=== PATIENT | female | born 1990 | race African-American/Black ===

== ENCOUNTER 2017-05-19 11:37 | Emergency (ER) | payer OTHER ==
[~2017-05-19] VITALS: Ht 154.9 cm; Wt 60.8 kg
[~2017-05-19 11:37] MED LIST: CIPROFLOXACIN500 M1 PO; FLAGYL500 MG PO; NOHOMEMEDICATIONS; PRENATAL
[2017-05-19 12:26] LABS: URINE BLOOD NEGATIVE (Negative); URINE CLARITY CLEAR; URINE COLOR YELLOW; URINE GLUCOSE-RANDOM* NEGATIVE (Negative); URINE KETONES TRACE (Negative); URINE LEUKOCYTES-REFLEX NEGATIVE (Negative); URINE NITRITE-REFLEX NEGATIVE (Negative); URINE PROTEIN (DIPSTICK) NEGATIVE (Negative); URINE SPECIFIC GRAVITY 1.025 (1.005-1.035); URINE UROBILINOGEN 0.2 E.U./dl (0.2-1.0)
[2017-05-19 12:31] LABS: ICTOTEST (BILI CONFIRMATORY) Negative (Negative); URINE BILIRUBIN NEGATIVE (Negative)
[2017-05-19] MEDS ORDERED: IBUPROFEN 600600 M1 PO (14:24)
[2017-05-19 14:48] VITALS: BP 117/68
== END 2017-05-19 14:48 | disposition home or self-care (01) ==
LOC: ER 11:37
PROVIDERS: Physician Assistant
DX: N83.201 Unspecified ovarian cyst, right side (principal); F17.210 Nicotine dependence, cigarettes, uncomplicated; Z88.2 Allergy status to sulfonamides